=== PATIENT | male | born 1965 | race Caucasian/White ===

== ENCOUNTER 2017-01-22 20:00 | Emergency (ER) ==
[2017-01-22] MEDS ORDERED: LIDOCAINE 1 % AMP 5 ML (SUTURES) SUBCUT STA (20:01)
[2017-01-22] MEDS ORDERED: TETANUS DIPHTHERIA TOXOIDS IM ONE (20:01)
[2017-01-22 20:06] VITALS: BP 140/92; TEMP 98.4; BMI 37.5
--- NOTE | 2017-01-22 20:27 | ED.PDOC ---
General ED Provider: Dr. NICOLE LAGUERRE-ER Chief Complaint: Laceration Stated Complaint: i cut my leg with a machete by mistake Time Seen by Physician: 20:10 Mode of Arrival: Walk-In Information Source: Patient Exam Limitations: No limitations Primary Care Provider: NICOLE LAGUERRE Nursing and Triage Documentation Reviewed and Agree: Yes Skin Complaint Exam - Laceration/Lower Ext. Complaint/Exam Location of Injury: Left, Leg Mechanism of Injury: Laceration Onset/Duration: 30 min Symptoms Are: Still present Initial Severity: Mild Current Severity: Mild Aggravating: Movement Alleviating: Compression Associated Signs and Symptoms: Denies: Fever, Chills, Erythema, Numbness, Tingling Differential Diagnoses: Laceration Review of Systems - Review Of Systems Constitutional: Reports: No symptoms Eyes: Reports: No symptoms Ears, Nose, Mouth, Throat: Reports: No symptoms Respiratory: Reports: No symptoms Cardiac: Reports: No symptoms GI: Reports: No symptoms : Reports: No symptoms Musculoskeletal: Reports: No symptoms Skin: Reports: No symptoms Neurological: Reports: No symptoms Endocrine: Reports: No symptoms Hematologic/Lymphatic: Reports: No symptoms All Other Systems: Reviewed and Negative Past Medical History - Past Medical History Endocrine: Reports: None Cardiovascular: Reports: Hypertension Respiratory: Reports: None Hematological: Reports: None Gastrointestinal: Reports: None Genitourinary: Reports: None 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) Musculoskeletal: Reports: None Cancer: Reports: None - Surgical History General Surgical History: Reports: Unknown - Family History Family History: Reports: Unknown - Social History Smoking Status: Current every day smoker, Heavy tobacco smoker Hx Substance Use: No Alcohol Screening: Occasionally Lives: With family - Immunizations Tetanus Shot up to Date: No Physical Exam - Physical Exam Appearance: Well-appearing, No pain distress, Well-nourished Pain Distress: Mild Eyes: REBECCA, EOMI, Conjunctiva clear ENT: Ears normal, Nose normal, Oropharynx normal Neck: Supple Respiratory: Airway patent, Breath sounds clear, Breath sounds equal, Respirations nonlabored Cardiovascular: RRR, Pulses normal, No rub, No murmur GI/: Soft, Nontender, No masses, Bowel sounds normal, No Organomegaly Musculoskeletal: Normal strength, ROM intact, No edema, No calf tenderness Skin: Warm, Dry, Normal color Neurological: Sensation intact, Motor intact, Reflexes intact, Cranial nerves intact, Alert, Oriented Psychiatric: Affect appropriate, Mood appropriate Procedures - Laceration/Wound Repair No standard instances Wound Description: Linear Wound Length (cm): 6cm left leg Wound Explored: Clean Wound Irrigated: Yes Wound Prep: Hibiclens Anesthesia: Lidocaine Undermining: Minimal Wound Repaired With: Sutures Suture Size and Type: 3.0 prolene Number of Sutures: 10 Layer Closure?: No Sterile Dressing Applied?: Yes Splint Applied?: No Sling Applied?: No Critical Care Note - Critical Care Note Total Time (mins): 0 Course - Course Orders, Labs, Meds: Orders Category Date Time Status Lidocaine HCl/Pf [Lidocaine 1 % Amp 5 ml (Sutures)] MEDS 01/22/17 20:01 Discontinued 5 ml SUBCUT ONCE STA Tetanus, Diphtheria Tox,Adult [Tetanus Diphtheria MEDS 01/22/17 20:01 Discontinued Toxoids] 0.5 ml IM .ONCE ONE Medications Discontinued Medications Generic Name Dose Route Start Last Admin Trade Name Freq PRN Reason Stop Dose Admin Lidocaine HCl 5 ml 01/22/17 20:01 01/22/17 20:08 Lidocaine 1 % Amp 5 Ml (Sutures) SUBCUT 01/22/17 20:02 5 ml ONCE STA Administration Tetanus/Diphtheria Toxoids 0.5 ml 01/22/17 20:01 01/22/17 20:09 Tetanus Diphtheria Toxoids IM 01/22/17 20:02 0.5 ml .ONCE ONE Administration Vital Signs: Temp Pulse Resp BP Pulse Ox 01/22/17 20:01 98.4 F 82 20 140/92 H 96 Departure - Departure Time of Disposition: 20:28 Disposition: HOME SELF-CARE Discharge Problem: Laceration - injury Instructions: Laceration (ED), Care For Your Stitches (ED) Condition: Good Pt referred to PMD for follow-up: Yes Additional Instructions: routine wound care--come to my office in 10 days for suture removal Disposition Discussed With: Patient
== END 2017-01-22 20:40 | disposition home or self-care (01) ==
LOC: ED 20:00
DX: S81.812A Laceration without foreign body, left lower leg, initial encounter (principal); W26.0XXA Contact with knife, initial encounter; F17.210 Nicotine dependence, cigarettes, uncomplicated
CPT/HCPCS: 90471; 99283

== ENCOUNTER 2017-06-19 09:15 | Outpatient (CLI) ==
--- NOTE | 2017-06-19 09:44 | DI ---
EXAM: Three views of the left knee HISTORY: Left knee pain. COMPARISON: None FINDINGS: Medial and lateral compartments of the left knee are unremarkable. There is no displaced f racture or dislocation. Patella is normal in position without fracture. The soft tissues are normal . There are surgical clips in the soft tissues. IMPRESSION: No acute abnormality of the left knee.
== END 2017-06-19 09:16 | disposition home or self-care (01) ==
LOC: RAD 09:15
PROVIDERS: ATTEND Family Medicine
DX: M25.562 Pain in left knee (principal); G89.29 Other chronic pain